=== PATIENT | male | born 1995 | race Caucasian/White ===

== ENCOUNTER 2018-10-31 13:35 | Emergency (ER) | payer OTHER ==
[~2018-10-31] VITALS: Ht 167.6 cm; Wt 66.7 kg
[2018-10-31 13:40] VITALS: BP 130/80; PULSE 80; RESP 16; Ht 167.6 cm; Wt 66.7 kg
[2018-10-31] MEDS ORDERED: IBUP-1542 PO (15:22)
--- NOTE | 2018-10-31 15:26 | ERD ---
ER Documentation Chief Complaint Chief Complaint R hand pain and R lower back pain after fall 2 days ago HPI 23-year-old male presents with pain in his right hand after falling after not se eing some steps 2 days ago. Pain is in the right fourth and fifth metacarpal area. He has no restricted range of motion, deficits, bleeding, laceration. Patient has additional complaint of several months of right flank pain rating to the right lower abdomen. Denies any fevers, vomiting, dysuria, hematuria. Patient states that he history history of kidney stones when he was 17. Does not remember ever passing a stone or receiving follow-up. ROS All systems reviewed and are negative except as per history of present illness. Medications Home Meds Active Scripts Ibuprofen* (Motrin*) 600 Mg Tab, 600 MG PO Q6, #20 TAB Prov:JACKIE MEDINA MD 10/31/18 Allergies Allergies: Coded Allergies: No Known Allergy (Unverified , 03/21/14) PMhx/Soc Medical and Surgical Hx: pt denies Surgical Hx History of Surgery: No Anesthesia Reaction: No Hx Neurological Disorder: No Hx Respiratory Disorders: Yes (ASTHMA ) Hx Cardiac Disorders: No Hx Psychiatric Problems: No Hx Miscellaneous Medical Probl: No Hx Alcohol Use: No Hx Substance Use: No Hx Tobacco Use: No Smoking Status: Never smoker FmHx Family History: No diabetes, No coronary disease, No other Physical Exam Vitals Vital Signs Date Temp Pulse Resp B/P (MAP) Pulse Ox O2 O2 Flow FiO2 Time Delivery Rate 10/31/18 98.2 80 16 130/80 100 13:40 (97) Physical Exam Const: No acute distress Head: Atraumatic Eyes: Normal Conjunctiva ENT: Normal External Ears, Nose and Mouth. Neck: Full range of motion. No meningismus. Resp: Clear to auscultation bilaterally Cardio: Regular rate and rhythm, no murmurs Abd: Soft, non tender, non distended. Normal bowel sounds Skin: No petechiae or rashes Back: No midline or flank tenderness. Mild right mid abdominal tenderness. No focal tenderness at McBurney's point no Coto sign. No rebound. Ext: No cyanosis, or edema. Tenderness and swelling of the right fourth and fifth metacarpal area. No deformities, restricted range of motion, deficits, warmth, erythema. Neur: Awake and alert Psych: Normal Mood and Affect Results 24 hrs Laboratory Tests Test 10/31/18 14:25 Urine Color STRAW Urine Clarity CLEAR Urine pH 6.0 Urine Specific [place] 1.011 Urine Ketones NEGATIVE mg/dL Urine Nitrite NEGATIVE mg/dL Urine Bilirubin NEGATIVE mg/dL Urine Urobilinogen NEGATIVE mg/dL Urine Leukocyte Esterase NEGATIVE Genesis/ul Urine Hemoglobin NEGATIVE mg/dL Urine Glucose NEGATIVE mg/dL Urine Total Protein NEGATIVE mg/dl Procedures/MDM Limited renal ultrasound shows no evidence of hydronephrosis or stones. Urine negative. X-ray right hand 3V interpreted by me: Scaphoid: Normal Bones: No fracture Joints: No dislocation Foreign body: None. Impression-normal right hand x-ray Patient presents with signs and symptoms of right hand contusion. There is no signs of fracture, dislocation, ischemia, deficits infection. Patient was placed in a right hand Velcro brace and was neurovascular intact after brace. Patient also has right flank pain of uncertain etiology without signs of hydronep hrosis, current signs of stones, surgical abdomen, additional concerning signs or symptoms. Doubt appendicitis given location of pain and duration of symptoms. He should recheck for fevers, vomiting, new worsening symptoms. Recommending primary care follow-up for follow-up for persistent symptoms. The patient was stable with no new complaints during the ER course. Clinically, t here is no current evidence to suggest meningitis, sepsis, acute abdomen, pneumonia, stroke, acute coronary syndrome, pulmonary embolism, aortic dissection or any other emergent condition appearing to require further evaluation or hospitalization. Patient counseled regarding my diagnostic impression and care plan. Prior to discharge all questions answered. Pt agrees with treatment plan and understands strict return precautions. Pt is instructed to follow up with primary care provider within 24-48 hours. Precautionary instructions provided including instructions to return to the ER if not improving or for any worsening or changing symptoms or concerns. Disclaimer: Inadvertent spelling and grammatical errors are likely due to EHR/dictation software use and do not reflect on the overall quality of patient care. Also, please note that the electronic time recorded on this note does not necessarily reflect the actual time of the patient encounter. Departure Diagnosis: Primary Impression: Hand sprain Encounter type: initial encounter Laterality: right Qualified Codes: S63.91XA - Sprain of unspecified part of right wrist and hand, initial encounter Additional Impressions: Flank pain Fall with no significant injury Encounter type: initial encounter Qualified Codes: W19.XXXA - Unspecified fall, initial encounter Condition: Stable Patient Instructions: Contusion, Hand Additional Instructions: X-rays, ultrasound and urine normal today. Likely contusion or sprain. No current signs of stones. Recommend recheck with primary doctor for persistent symptoms. Recheck sooner for fevers, vomiting, worsening pain, new worsening symptoms. JACKIE MEDINA MD Oct 31, 2018 15:26
== END 2018-10-31 15:59 | disposition home or self-care (01) ==
LOC: FTE 13:35
DX: S63.91XA Sprain of unspecified part of right wrist and hand, initial encounter (principal); S39.91XA Unspecified injury of abdomen, initial encounter; J45.909 Unspecified asthma, uncomplicated; W18.39XA Other fall on same level, initial encounter; Y92.9 Unspecified place or not applicable
CPT/HCPCS: 29125; 73130; 76775; 81003; Z7502